=== PATIENT | male | born 1995 | race Caucasian/White ===

== ENCOUNTER → 2018-12-07 15:39 | Outpatient (CLI) | payer BC, SELFPAY | PROVIDERS: Visit Provider Podiatrist | DX: L03.032 Cellulitis of left toe (principal); L98.0 Pyogenic granuloma | CPT/HCPCS: 87070; 87077; 87186; 87205 ==

== ENCOUNTER 2021-04-03 10:39 | Emergency (ER) | payer OTHER, SELFPAY ==
[2021-04-03 11:12] VITALS: BP 137/87; PULSE 75; RESP 16; TEMP 37; O2SAT 96; BMI 29.5
--- NOTE | 2021-04-03 11:52 | HMH.EDUTC ---
[facility] [place] Disposition Clinical Impression: Laceration Finger laceration Qualifiers: Encounter type: initial encounter Finger: middle finger Damage to nail status: without damage Foreign body presence: without foreign body Laterality: left Qualified Code(s): S61.213A - Laceration without foreign body of left middle finger without damage to nail, initial encounter Disposition: Home, Self-Care Condition on Discharge: Good Instructions: Laceration Repair, DI for Laceration Repair, DI for Laceration Repair -- Simple Additional Instructions: Suture instructions: You have required stitches today. Please read the following instructions so you know how to care for them: 1. Keep wound area dry for the first 24 hours. 2 May clean gently with mild soap and water, after 48 hours to prevent crusting over suture knots. 3. You may shower if your provider gives permission but do not take a bath until the skin is healed.. 4. Never leave a wet dressing or Band-Aid on your stitches as this allows bacteria to reach the area and may cause infection. Band-aids can cause the wound to sweat and not recommended to wear for long periods of time Watch for signs of infection: Increasing redness, tenderness or warmth around the suture site Unusual swelling around the site Appearance of pus around each suture or any red streaks Fever If you develop any of the above signs or symptoms of infection, Follow up with Family Physician immediately 5. Suture removal in _7-10___days 6. Return to [facility] or follow up with family doctor for removal. This can be done by any medical provider during regular hours on Thursday through Thursday, by appointment. Referrals: Jamie Jackson MD [Primary Care Provider] - As needed Time of Disposition: 11:56 Medical Decision Making - Rashid Inquiry Pt receiving controlled substance: No Rashid was queried for this patient: No Vital Signs: 04/03/21 11:12 04/03/21 12:15 Temperature 98.6 F 98 F Temperature Source Oral Pulse Rate 75 Pulse Rate [Left] 75 Respiratory Rate 16 14 Blood Pressure 129/85 Blood Pressure [Right Arm] 137/87 Blood Pressure Mean [Right Arm] 103 Blood Pressure Source [Right Arm] Automatic Cuff Blood Pressure Position [Right Arm] Sitting 02 Sat by Pulse Oximetry 96 Orders (Tests/Meds): ED MEDICATIONS Discontinued Medications Generic Name Dose Route Start Last Admin Trade Name Freq PRN Reason Stop Dose Admin Lidocaine HCl 5 ml 04/03/21 11:59 04/03/21 12:01 Lidocaine 1% 5ml Pf Vial IJ 04/03/21 12:00 5 ml ONCE ONE Administration Tetanus/Reduced Diphtheria/Acell Pertussis 0.5 ml 04/03/21 11:52 04/03/21 12:01 Tet/Diphth/Pert-Adult 0.5ml Syringe IM 04/03/21 11:53 0.5 ml .ONCE ONE Administration Medical Decision Narrative: wound irrigated well and expored with hibacleanse and saline [facility] [place] HPI - General Stated complaint: lt middle index lac Time Seen by Provider: 04/03/21 11:20 Mode of Arrival: Ambulatory Source of Information: Patient Limitations: No Limitations Description of Symptoms (Recalled from Triage Doc. by RN): pt was at work and cut his middle finger on his L hand on a blade. workers comp 3m. HEENT Symptoms (Recalled from RN notes): No Resp Symptoms (Recalled from RN notes): No Skin Symptoms (Recalled from RN notes): Yes (L middle finger lac) MS Symptoms (Recalled from RN notes): No Functional Status (Recalled from RN notes): na - History of Present Illness Provider Complaint: Patient state that he was at work when he accidently cut his left middle finger on and blade State that when he took his glove off he noticed he was bleeding and immediatly applied pressure and they bandaged it and brought him up to have it looked at - Related Data Allergies Allergy/AdvReac Type Severity Reaction Status Date / Time No Known Allergies Allergy Verified 12/07/18 08:34 - Worker's Comp Is this a Worker's Comp case?: No [facility] History - Hepatitis
[2021-04-03 12:15] VITALS: BP 129/85; PULSE 75; RESP 14; TEMP 36.6
== END 2021-04-03 12:15 | disposition home or self-care (01) ==
PROVIDERS: Emergency Provider Nurse Practitioner; PCP Family Medicine
DX: S61.213A Laceration without foreign body of left middle finger without damage to nail, initial encounter (principal); W26.0XXA Contact with knife, initial encounter; Y92.63 Factory as the place of occurrence of the external cause; Y99.0 Civilian activity done for income or pay; Z23 Encounter for immunization
CPT/HCPCS: 12001; 90715; 99202; G0463

== ENCOUNTER 2021-04-12 09:55 | Emergency (ER) | payer OTHER, SELFPAY ==
[2021-04-12 09:58] VITALS: BP 123/79; PULSE 68; RESP 17; TEMP 36.8; O2SAT 97; BMI 27.8
--- NOTE | 2021-04-12 10:17 | HMH.EDUTC ---
[facility] [place] Clinical Impression: Visit for suture removal Finger laceration Qualifiers: Encounter type: sequela Finger: middle finger Damage to nail status: without damage Foreign body presence: without foreign body Laterality: left Qualified Code(s): S61.213S - Laceration without foreign body of left middle finger without damage to nail, sequela Cellulitis Qualifiers: Site of cellulitis: extremity Site of cellulitis of extremity: finger Laterality: left Qualified Code(s): L03.012 - Cellulitis of left finger Disposition: Home, Self-Care Condition on Discharge: Good Instructions: DI for Cellulitis -- Adult Prescriptions: Sulfamethoxazole/Trimethoprim [Bactrim DS tablet] 1 each PO BID 10 Days #20 tab Transmission Status: Pending to [facility] Referrals: Dean Johnson MD [Primary Care Provider] - Time of Disposition: 10:20 Medical Decision Making - Rashid Inquiry Pt receiving controlled substance: No Vital Signs: 04/12/21 09:58 Temperature 98.2 F Temperature Source Oral Pulse Rate [Left] 68 Respiratory Rate 17 Blood Pressure [Right Arm] 123/79 Blood Pressure Mean [Right Arm] 93 02 Sat by Pulse Oximetry 97 [facility] [place] - General Stated complaint: suture removal Time Seen by Provider: 04/12/21 10:17 Mode of Arrival: Ambulatory Source of Information: Patient Limitations: No Limitations Description of Symptoms (Recalled from Triage Doc. by RN): Pt is here for suture remova in left 3rd digit of hand and infection in suture site. HEENT Symptoms (Recalled from RN notes): No Resp Symptoms (Recalled from RN notes): No Skin Symptoms (Recalled from RN notes): Yes MS Symptoms (Recalled from RN notes): No Functional Status (Recalled from RN notes): wnl - History of Present Illness Provider Complaint: Laceration left 3rd digit 04/03/21. Area started getting red and sore a few days after sutures placed. Has been on Augmentin but doesn't seem to be getting much better. Onset (ago): day(s) (9) Location: left, upper extremity Consistency: constant Relieving factors: none Exacerbating factors: none Associated symptoms: denies other symptoms Treatments prior to arrival: none - Related Data Previous Rx's Medication Instructions Recorded Sulfamethoxazole/Trimethoprim 1 each PO BID 10 Days #20 tab 04/12/21 [Bactrim DS tablet] Allergies Allergy/AdvReac Type Severity Reaction Status Date / Time No Known Allergies Allergy Verified 04/12/21 10:10 - Worker's Comp Is this a Worker's Comp case?: Yes Is this an [facility] Worker's Comp?: No Is this a [facility] Worker's Comp?: No [facility] History - Hepatitis A Screen Drug use history?: No High risk sexual behaviors?: No History of sexually transmitted infection?: No Currently employed?: No Childcare worker?: No Do you have indoor plumbing?: Yes Do you have electricity?: Yes Attestation statement:: This patient has been screened for Hepatitis A risk factors. I have reviewed the patient's past medical history: Yes Other Medical History: Reports: Other Other Surgeries: Yes: No Previous Surgery Amputation: No Fractures: No - Social History Smoking Status: Never smoker Alcohol Intake: never Alcohol Intake Frequency:: holidays/special occasions only Occupational Status: other Family Hx:: Unable to obtain ROS Obtained: Yes All systems reviewed & no additional complaints - Integumentary/Breasts Skin/Breast: Reports as per HPI Physical Exam - General General appearance: alert, in no apparent distress - Head Head exam: normocephalic - Respiratory Respiratory exam: Present: normal lung sounds bilaterally - Cardiovascular Cardiovascular exam: Present: regular rate, normal rhythm - Expanded Upper Extremity Exam Left Hand exam: Present: other (redness, swelling around laceration - erythema is irregular, warm to touch) - Neurological Exam Neurological exam: Present: alert, oriented X3 - Psychiatric Psychiatric e
[2021-04-12 10:19] VITALS: BP 123/79; PULSE 68; RESP 17; TEMP 36.8; O2SAT 97; BMI 27.8
[2021-04-12 10:20] VITALS: BP 123/79; PULSE 68; RESP 17; TEMP 36.8; O2SAT 97
== END 2021-04-12 10:28 | disposition home or self-care (01) ==
PROVIDERS: Emergency Provider Physician Assistant; PCP Family Medicine
DX: S61.213S Laceration without foreign body of left middle finger without damage to nail, sequela (principal); L03.012 Cellulitis of left finger

== ENCOUNTER 2021-06-07 17:58 | Emergency (ER) | payer BC, SELFPAY ==
[2021-06-07 18:05] VITALS: RESP 18; O2SAT 98; BMI 21.9
--- NOTE | 2021-06-07 20:05 | HMH.EDUTC ---
[facility] [place] Clinical Impression: Laceration Disposition: Home, Self-Care Condition on Discharge: Good Instructions: DI for Laceration Repair -- Finger Additional Instructions: Suture instructions: You have required stitches today. Please read the following instructions so you know how to care for them: 1. Keep wound area dry for the first 24 hours. 2 May clean gently with mild soap and water, after 48 hours to prevent crusting over suture knots. 3. You may shower if your provider gives permission but do not take a bath until the skin is healed.. 4. Never leave a wet dressing or Band-Aid on your stitches as this allows bacteria to reach the area and may cause infection. Band-aids can cause the wound to sweat and not recommended to wear for long periods of time Watch for signs of infection: Increasing redness, tenderness or warmth around the suture site Unusual swelling around the site Appearance of pus around each suture or any red streaks Fever If you develop any of the above signs or symptoms of infection, Follow up with Family Physician immediately 5. Suture removal in __7-10__days 6. Return to [facility] or follow up with family doctor for removal. This can be done by any medical provider during regular hours on Thursday through Thursday, by appointment.7-10 Prescriptions: Amoxicillin/Potassium Clav [Augmentin 875-125 Tablet] 1 tab PO Q12H 7 Days #14 tab Transmission Status: Received by [id number] Referrals: Dean Johnson MD [Primary Care Provider] - As needed Time of Disposition: 21:22 Medical Decision Making - Rashid Inquiry Pt receiving controlled substance: No Rashid was queried for this patient: No Vital Signs: 06/07/21 18:05 06/07/21 20:16 Temperature 98.0 F Pulse Rate 98 H Respiratory Rate 18 18 Blood Pressure 00/00 L 02 Sat by Pulse Oximetry 98 Oxygen Delivery Method Room Air Orders (Tests/Meds): ED MEDICATIONS Discontinued Medications Generic Name Dose Route Start Last Admin Trade Name Freq PRN Reason Stop Dose Admin Amoxicillin/Clavulanate Potassium 1 each 06/07/21 20:15 Amoxicillin/Pot Clavulan 500mg Tablet PO 06/07/21 20:16 ONCE ONE Protocol Medical Decision Narrative: Discussed with Dr Carreon and he looked at laceration due to irregular borders and he advised was still simple laceration and he would assist/over see closure in UTC Patient agreed Dr Carreon viewed laceration closure wound edges approximated well and advised to place on antibiotics and able to dc home [facility] [place] HPI - General Stated complaint: AO cut L hand on chainsaw Time Seen by Provider: 06/07/21 20:06 Mode of Arrival: Ambulatory Source of Information: Patient Limitations: No Limitations Description of Symptoms (Recalled from Triage Doc. by RN): PATIENT C/O LACERATION TO LEFT PINKY FINGER BY CHAINSAW JUST BACK WINDER HEENT Symptoms (Recalled from RN notes): No Resp Symptoms (Recalled from RN notes): No Skin Symptoms (Recalled from RN notes): Yes MS Symptoms (Recalled from RN notes): No Functional Status (Recalled from RN notes): WNL - History of Present Illness Provider Complaint: Patient states that he was cutting a tree when the saw slipped and caused laceration to his left little finger State that he is still able to bend it and feel everything but noticed it looked like he had several laceration on his finger that was going to need stitches - Related Data Previous Rx's Medication Instructions Recorded Sulfamethoxazole/Trimethoprim 1 each PO BID 10 Days #20 tab 04/12/21 [Bactrim DS tablet] Amoxicillin/Potassium Clav 1 tab PO Q12H 7 Days #14 tab 06/07/21 [Augmentin 875-125 Tablet] Allergies Allergy/AdvReac Type Severity Reaction Status Date / Time No Known Allergies Allergy Verified 04/12/21 10:10 - Worker's Comp Is this a Worker's Comp case?: No [facility] History - Hepatitis A Screen Drug use history?: No High risk sexual behaviors?: No H
[2021-06-07 20:16] VITALS: BP 00/00; PULSE 98; RESP 18; TEMP 36.7; O2SAT 98
== END 2021-06-07 20:26 | disposition home or self-care (01) ==
PROVIDERS: Emergency Provider Nurse Practitioner; PCP Family Medicine
DX: S61.217A Laceration without foreign body of left little finger without damage to nail, initial encounter (principal); W29.3XXA Contact with powered garden and outdoor hand tools and machinery, initial encounter; Y92.89 Other specified places as the place of occurrence of the external cause
CPT/HCPCS: 12002; 99202; G0463

== ENCOUNTER → 2023-01-21 23:00 | Outpatient (CLI) | payer BC, OTHER, SELFPAY | PROVIDERS: PCP Nurse Practitioner Family; Visit Provider Nurse Practitioner Family | DX: J02.9 Acute pharyngitis, unspecified (principal); B95.0 Streptococcus, group A, as the cause of diseases classified elsewhere | CPT/HCPCS: 87070; 87077; 87186 ==

== ENCOUNTER 2025-07-13 07:54 | Outpatient (CLI) | payer BC, OTHER, SELFPAY ==
--- NOTE | 2025-07-13 08:00 | CA_ITS ---
FINAL REPORT CLINICAL HISTORY: EDEMA/PAIN RIGHT CALF,BRUISING RT CALF,PT WAS HIT IN CALF PLAYING SOFTBALL LAST THURSDAY COMPARISON: None FINDINGS: DUPLEX VENOUS SONOGRAPHY OF THE RIGHT LOWER EXTREMITY Multiple transverse and longitudinal scans were performed of the femoropopliteal deep venous system, with augmentation and compression maneuvers. HISTORY: Pain and swelling FINDINGS: Normal phasic flow was noted in the visualized deep venous system. No intraluminal increased echogenicity is noted to suggest thrombus. There is normal compression and augmentation of the venous structures. No abnormal venous collaterals are seen. IMPRESSION: No evidence of deep venous thrombosis of the right lower extremity. Reviewed, Interpreted and Dictated by Gloria Tellez MD Transcribed by Esther Morgan Authenticated and [facility]
--- NOTE | 2025-07-13 08:24 | XR_ITS ---
FINAL REPORT TECHNIQUE: 4 views right tibia and fibula CLINICAL HISTORY: Injury/swelling/pain COMPARISON: None FINDINGS: AP and lateral views of the right tibia and fibula were obtained. There is no prior exam for comparison. There is no acute fracture of the right tibia or fibula. The knee and ankle appear intact. The soft tissues are normal. IMPRESSION: No acute osseous abnormality of the right tibia or fibula. Reviewed, Interpreted and Dictated by Gloria Tellez MD Transcribed by Esther Morgan Authenticated and [facility]
--- NOTE | 2025-07-13 08:24 | XR_ITS ---
FINAL REPORT CLINICAL HISTORY: Injury/swelling/pain COMPARISON: None FINDINGS: AP, oblique, and lateral views of the right ankle were obtained. There is no fracture or dislocation. The ankle mortise is intact. Lateral soft tissue swelling is noted about the ankle. IMPRESSION: No acute osseous abnormality of the right ankle. Reviewed, Interpreted and Dictated by Gloria Tellez MD Transcribed by Esther Morgan Authenticated and [facility]
== END 2025-07-13 23:59 | disposition home or self-care (01) ==
PROVIDERS: PCP Internal Medicine; Visit Provider Internal Medicine
DX: S89.91XA Unspecified injury of right lower leg, initial encounter (principal); R60.0 Localized edema; W21.07XA Struck by softball, initial encounter; Y93.64 Activity, baseball
CPT/HCPCS: 73590; 73610; 93971